=== PATIENT | female | born 1995 | race Caucasian/White ===

== ENCOUNTER → 2020-08-24 18:21 | Outpatient (CLI) | payer BC, SELFPAY ==
[2020-08-24 19:06] LABS: Basophils # 0.1 K/mm3 (0-0.2); Basophils % 0.6 % (0.1-2.0); Eosinophils % 0.2 % (0.1-12.0); Hematocrit 42.4 % (37.0-47.0); Hemoglobin 13.7 g/dL (12.2-16.2); Lymphocytes # 2.2 K/mm3 (0.7-4.5); Lymphocytes % 22.9 % (10-50); Mean Corpuscular HGB Conc 32.3 g/dL (31.8-35.4); Mean Corpuscular Hemoglobin 30.5 pg (27.0-31.2); Mean Corpuscular Volume 94.4 fl (81-99); Mean Platelet Volume 8.1 fl (7.4-10.4); Monocytes # 0.4 K/mm3 (0.1-1.0); Monocytes % 3.6 % (1.7-9.3); Neutrophils # 6.9 K/mm3 (1.8-7.8); Neutrophils % 72.7 % (37.0-80.0); Platelet Count 373 K/mm3 (142-424); White Blood Count 9.5 K/mm3 (4.8-10.8)
[2020-08-24 19:15] LABS: Alanine Aminotransferase 18 U/L (12-78); Albumin Level 4.8 g/dl (3.5-5.0); Albumin/Globulin Ratio 1.5 (1.1-1.8); Alkaline Phosphatase 55 U/L (38-126); Anion Gap 14.7 mEq/L (5-15); Aspartate Amino Transferase 26 U/L (14-36); Bilirubin,Total 0.6 mg/dl (0.2-1.3); Blood Urea Nitrogen 12 mg/dl (7-17); Calcium 10.4 mg/dl (8.4-10.2); Carbon Dioxide 27 mmol/L (22.0-30.0); Chloride 101 mmol/L (98-107); Cholesterol 205 mg/dl (140-200); Estimated Glomerular Filt Rate 104 ml/min (>60); GFR (African American) 125 ML/MIN (>60); Globulin 3.2 g/dL (1.3-3.2); Glucose 110 mg/dl (74-100); HDL Cholesterol 102 mg/dl (40-60); Potassium 4.7 mmoL/L (3.5-5.1); Sodium 138 mmol/L (136-145); Triglycerides 77 mg/dl (30-150); VLDL Cholesterol 15 mg/dL (0-40)
[2020-08-24 19:27] LABS: Direct LDL Cholesterol 77.03 mg/dL (100-129)
[2020-08-24 19:28] LABS: Free T4 (Free Thyroxine) 1.25 ng/dl (0.78-2.19)
[2020-08-24 19:29] LABS: 25-OH Vitamin D, Total 49.1 ng/mL (30-100)
[2020-08-24 19:47] LABS: Thyroid Stimulating Hormone 1.25 uIU/mL (0.465-4.68)
== END ==
PROVIDERS: Visit Provider Physician Assistant
DX: Z00.00 Encounter for general adult medical examination without abnormal findings (principal); R00.0 Tachycardia, unspecified; F41.9 Anxiety disorder, unspecified; F32.9 Major depressive disorder, single episode, unspecified
CPT/HCPCS: 80053; 80061; 82306; 84439; 84443; 85025

== ENCOUNTER 2024-06-01 13:45 | Outpatient (CLI) | payer OTHER, SELFPAY ==
[2024-06-01 12:03] LABS: Microscopic, Urine URINE MICROSCOPIC (MICROSCOPIC)
[2024-06-01 13:06] LABS: Appearance,Urine CLEAR (Clear); Bilirubin,Urine Negative (Negative); Blood, Urine Negative (Negative); Color,Urine YELLOW (Yellow); Glucose,Urine (UA) Negative (Negative); Ketones,Urine Negative (Negative); Leukocyte Esterase,Urine 2+ (Negative); Nitrate,Urine Negative (Negative); Protein,Urine Negative (Negative); Urobilinogen,Urine 0.2 EU/dl (0.2)
[2024-06-01 14:58] LABS: Bacteria,Urine 1+ /lpf; WBC,Urine 20-50 #/hpf (0-3)
== END 2024-06-01 23:59 | disposition home or self-care (01) ==
LOC: LAB.DROPOF 13:46
PROVIDERS: PCP Nurse Practitioner Family; Visit Provider Nurse Practitioner Family
DX: R30.0 Dysuria (principal)
CPT/HCPCS: 81001; 87086

== ENCOUNTER 2024-08-31 09:10 | Outpatient (CLI) | payer OTHER, SELFPAY ==
[2024-08-31 10:42] LABS: HCG,Quantitative 9186 mIU/ml (0-5.42)
[2024-09-01 08:25] LABS: Progesterone 8.8 ng/mL (.)
== END 2024-08-31 23:59 | disposition home or self-care (01) ==
LOC: LAB 09:12
PROVIDERS: Visit Provider Obstetrics & Gynecology
DX: Z34.90 Encounter for supervision of normal pregnancy, unspecified, unspecified trimester (principal)
CPT/HCPCS: 36415; 84144; 84702

== ENCOUNTER 2024-09-11 10:49 | Outpatient (CLI) | payer OTHER, SELFPAY ==
[2024-09-11 11:19] LABS: Basophils # 0.1 K/mm3 (0-0.2); Basophils % 0.9 % (0.1-2.0); Eosinophils # 0.2 K/mm3 (0.0-0.4); Eosinophils % 1.3 % (0.1-12.0); Hematocrit 38.7 % (37.0-47.0); Lymphocytes # 2.6 K/mm3 (0.7-4.5); Lymphocytes % 23.5 % (10-50); Mean Corpuscular HGB Conc 33.6 g/dL (31.8-35.4); Mean Corpuscular Hemoglobin 30.4 pg (27.0-31.2); Mean Corpuscular Volume 90.4 fl (81-99); Mean Platelet Volume 9.6 fl (7.4-10.4); Monocytes # 0.6 K/mm3 (0.1-1.0); Monocytes % 5.6 % (1.7-9.3); Neutrophils # 7.6 K/mm3 (1.8-7.8); Neutrophils % 68.4 % (37.0-80.0); Platelet Count 389 K/mm3 (142-424); Red Blood Count 4.28 M/mm3 (4.20-5.40); Red Cell Distribution Width 12.3 % (11.5-17.5); White Blood Count 11.2 K/mm3 (4.8-10.8)
[2024-09-11 12:01] LABS: HCG,Quantitative 5879 mIU/ml (0-5.42)
[2024-09-11 16:27] LABS: RPR W/RFX Titers Nonreactive (Nonreactive)
== END 2024-09-11 23:59 | disposition home or self-care (01) ==
LOC: LAB 10:52
PROVIDERS: PCP Nurse Practitioner Family; Visit Provider Obstetrics & Gynecology
DX: Z34.01 Encounter for supervision of normal first pregnancy, first trimester (principal); Z33.2 Encounter for elective termination of pregnancy
CPT/HCPCS: 36415; 84702; 85025; 86592; 86850; 87086

== ENCOUNTER 2024-09-28 11:55 | Outpatient (CLI) | payer OTHER, SELFPAY ==
[2024-09-28 13:02] LABS: HCG,Quantitative 425 mIU/ml (0-5.42)
== END 2024-09-28 23:59 | disposition home or self-care (01) ==
LOC: LAB 11:56
PROVIDERS: PCP Internal Medicine; Visit Provider Obstetrics & Gynecology
DX: Z33.2 Encounter for elective termination of pregnancy (principal)
CPT/HCPCS: 36415; 84702

== ENCOUNTER 2024-11-19 13:34 | Outpatient (CLI) | payer OTHER, SELFPAY ==
[2024-11-19 15:32] LABS: HCG,Quantitative < 2 mIU/ml (0-5.42)
== END 2024-11-19 23:59 | disposition home or self-care (01) ==
LOC: LAB 13:37
PROVIDERS: PCP Family Medicine; Visit Provider Obstetrics & Gynecology
DX: Z33.2 Encounter for elective termination of pregnancy (principal)
CPT/HCPCS: 36415; 84702

== ENCOUNTER 2025-08-09 09:44 | Outpatient (CLI) | payer OTHER, SELFPAY ==
--- OUTSIDE RECORDS SUMMARY | 2025-08-10 11:38 | XMS_ITS | Clinical Summary ---
Author Organization [facility] Address [address] [place] [phone] Phone Care Team Providers Care Licensed Real Estate Broker Name Role Phone Unavailable Primary Care Provider Unavailabl e Allergies No known active allergies Medications norgestimate-ethin yl estradioL (SPRINTEC, 28,) 0.25-35 mg-mcg Oral TabletIndications: Encounter for surveillance of contraceptive pills Take 1 Tablet by mouth daily. 84 Tablet 4 1 Active Active Problems No known active problems Social History Tobacco Use Types Packs/Day Years Used Date Smoking Tobacco: Never Smokeless Tobacco: Never Alcohol Use Standard Drinks/Week Comments Yes 0 (1 standard drink = 0.6 oz pur e alcohol) Sexually Active Control Partners Comments Yes Comments No Sex and Gender Information Value Date Recorded Sex Assigned at Not on file Legal Sex Female 1:46 PM EDT Gender Identity Not on file Sexual Orientation Not on file Obstetrics History Para Term AB IAB SAB Ectopic Multiple Livin g Live Births 0 0 0 0 0 0 0 0 0 0 0 Last Filed Vital Signs Vital Sign Reading Time Taken Comments Blood Pressure 116/76 03/27/2021 10:31 AM EDT Pulse 72 07/01/2019 10:23 AM EST Temperature 36.1 C (97 F) 03/27/2021 10:31 AM EDT Respiratory Rate 16 07/01/2019 10:23 AM EST Oxygen Saturation 100% 07/01/2019 10:23 AM EST Inhaled Oxygen Concentration - - Weight 83 kg (183 lb) 03/27/2021 10:31 AM EDT Height 162.6 cm (5' 4 ) 03/27/2021 10:31 AM EDT Body Mass Index 31.41 03/27/2021 10:31 AM EDT Plan of Treatment Health Maintenance Due Date Last Done Comments Annual Wellness Exam 1999 DTaP/TDaP/Td (1 - Tdap) 2015 Hepatitis B Vaccine (1 of 3 - 19+ 3-dose series) 2015 Cervical Cancer Screening 03/27/2024 Pap Smear 03/27/2024 03/27/2021, 04/21/2019 COVID-19 Vaccine (3 - 2024-2 6 season) 2025 12/12/2020, 11/21/2020 Influenza Vaccine (#1) 2025 0, 04/15/2020 Chlamydia Screening Discontinued 03/27/2021, 04/21/2019 Meningococcal B Vaccine Aged Out No l onger eligible based on patient's age to complete this topic Pneumococcal Vaccine 0-49 Aged Out No longer eligible based on patient's age to complete this topic Procedures Procedure Name Priority Date/Time Associated Diagnosis Comments GC CHLAMYDIA THIN PREP Routine 03/27/2021 10:49 AM EDT Well woman exam MARKET DEVELOPER CYTOLOGY REQUEST (PAP ONLY) Routine 03/27/2021 10:49 AM EDT Well woman exam from Last 3 Months or Most Recently Relevant to Health Maintenance Results * MARKET DEVELOPER CYTOLOGY REQUEST (PAP ONLY) (03/27/2021 10:49 AM EDT) CASE REPORT Gynecologic Cytology Report Case: [id number] Authorizing Provider: Crystal Morillo Collected: 03/27/2021 1049 MD Christina Ordering Location: [facility] Received: 03/27/2021 1049 First Screen: Len [place] CT Specimen: LIQUID-BASED PAP - CERVICAL/ENDOCERV ICAL, Cervix, Endocervical 03/28/2021 3:14 PM EDT [facility] PAP FINAL DIAGNOSIS Negative for intraepithelial lesion or malignancy 03/28/2021 3:14 PM EDT [facility] at 1514 EDT MICROSCOPIC DESCRIPTION Microscopic examination is performed and the findings corroborate the diagnosis 03/28/2021 3:14 PM EDT [facility] PAP SMEAR ADEQUACY Satisfactory for evaluation 03/28/2021 3:14 PM EDT [facility] ENDOCERVICAL T-ZONE Transformation zone absent. 03/28/2021 3:14 PM EDT [facility] EMBEDDED IMAGES 3:14 PM EDT [facility] PAP DISCLAIMER The Pap Smear is a screening test that aids in the detection of cervical cancer and cancer precursors. Both false positive and false negative results can occur. The test should be used at regular intervals, and positive results should be confirmed before definitive therapy. Processed using the ThinPrep Dampener Automated cytology screening device ([employer]). 03/28/2021 3:14 PM EDT [facility] Thin Prep ENDOCERVICAL STRUCTURE / Unknown 03/27/2021 10:49 AM EDT 03/27/2021 10:49 AM EDT Crystal Morillo MD CYTOLOGY ORDERABL ES Final Result [place] [id number] * GC CHLAMYDIA THIN PREP (03/27/2021 10:49 AM EDT) Chlamydia trachomatis Not Detected Not Detected 03/28/2021 4:10 PM EDT [facility] Neisseria gonorrhoeae Not Detected Not Detected 03/28/2021 4:10 PM EDT [facility] Thin Prep SPECIMEN FROM UTERINE CERVIX / Unknown 03/27/2021 10:49 AM EDT 03/27/2021 10:49 AM EDT Narrative [facility] - 03/28/2021 4:10 PM EDT Testing methodology is plant machinist mediated amplification (TMA) using the Aptima Combo 2 assay from [employer]. A negative result does not completely rule out a Chlamydia trachomatis or Neisseria gonorrhoeae infection due to potential inhibitors or levels present below the limit of detection by this assay. Results are dependent on proper collection and transport of specimen. This test is indicated for medical purposes only and should not be used for legal or forensic purposes. The performance characteristics of this assay were validated by the testing laboratory. This assay is FDA cleared to test the following specimens: clinician-collected endocervical, vaginal, male urethral swab specimens, rectal swabs, and throat/pharyngeal swabs; patient collected vaginal specimens within a clinic setting; Thin Prep Specimens in PreservCyt Solution; and first-stream, unpreserved male and female urine specimens. Detailed methodology is available upon request. Crystal Morillo MD MICROBIOLOGY - [facility] ORDERABLES Final Result [facility]REFERR[facility] [employer] [address] [facility], [place] [address] from Last 3 Months or Most Recently Relevant to Health Maintenance Insurance [facility] PPO
--- OUTSIDE RECORDS SUMMARY | 2025-08-10 11:38 | XMS_ITS | Referral Summary ---
Author Organization [employer] ([place], [place], [place], [place], [place]) Address [address] [place] [address] Care Team Providers Care Rake Operator Name Role Phone Meg Jaimes PA-C Primary Care Provider [phone] Social History Tobacco Use Types Packs/Day Years Used Date Smoking Tobacco: Never Assessed Food Insecurity Answer Date Recorded Food run out past 12 months Not on file 12/10 Food did not last past 12 months Not on file 12/26/2023 Employment Answer Date Recorded Help finding and keeping a job Not on file 0 12/26/2023 Family and Community Support Answer Mars e Recorded Help with Day to Day Activities Not on file 12/26/2023 Feeling Lonely or Isolated Not on file 12/25 Educational Attainment Answer Date Rick rded Speak language other than [place] at home Not on file 12/26/2023 Want help with school or training Not on file 12/26/2023 Substance Use Answer Date Recorded Used prescription meds for non-medical reasons N ot on file 12/26/2023 Used illegal drugs past 12 months Not on file 12/26/2023 Comments Unknown Sex and Gender Information Value Date Recorded Sex Assigned at Not on file Legal Sex Female 10:24 AM CDT Gender Identity Not on file Sexual Orientation Not on file Plan of Treatment Not on file Insurance [employer] Care Teams Rake Operator Relationship Specialty Start Date End Date Meg Jaimes PA-C [address] [place] [address] PCP - General Physician Hot Stick Worker 03/02/24
--- OUTSIDE RECORDS SUMMARY | 2025-08-10 11:38 | XMS_ITS | Clinical Summary ---
Author Organization [employer] ([place], [place], [place], [place], [place]) Address [address] [place] [address] Care Team Providers Care Art Framing Manager Name Role Phone Meg Jaimes PA-C Primary Care Provider [phone] Social History Tobacco Use Types Packs/Day Years [...] Date Rick rded Speak language other than [place] at home Not on file 12/26/2023 Want [...] Orientation Not on file Plan of Treatment Health Maintenance Due Date Last Done Comments Depression Screening (12+) 2008 Tobacco Cessation Counseling and Screening (12+) 2008 HIV Screening 2011 Hepatitis C Screening 2014 DTAP/TDAP/TD VACCINES (1 - Tdap) 2015 Pap Smear 03/27/2024 03/27/2021 COVID-19 VACCINE (4 - 2024-2 6 season) 2025 07/21/2021, 12/12/2020, 11/21/2020 Influenza Vaccine (#1) 2025 05/12/2020 Pneumococcal Vaccine: 0-49 Years Aged Out No longer eligible b ased on patient's age to complete this topic Insurance [facility] [employer] Care Teams Art Framing Manager Relationship Specialty Start Date End Date Meg Jaimes, PAKeC [address] [place] [address] PCP - General Physician Woodworking Machinist 03/02/24
== END 2025-08-09 23:59 | disposition home or self-care (01) ==
LOC: LAB.DROPOF 08-10 11:36
PROVIDERS: PCP Family Medicine; Visit Provider Nurse Practitioner
DX: N89.8 Other specified noninflammatory disorders of vagina (principal)
CPT/HCPCS: 87086